=== PATIENT | female | born 1960 | race Asian ===

== ENCOUNTER 2018-06-30 10:57 | Outpatient (CLI) | payer OTHER ==
[~2018-06-30] VITALS: Ht 167.6 cm; Wt 51.7 kg
[2018-06-30] MEDS ORDERED: ACYCLOVIR200 MG ORAL (15:45)
[2018-06-30 15:47] VITALS: BP 102/60
--- NOTE | 2018-07-03 00:07 | GI Initial Consult Note ---
History of Present Illness General Date patient seen: Jun 30, 2018 Time patient seen: 00:00 Referring physician: HMO Reason for Consultation: ABDOMINAL PAIN Present Illness HPI 58 year old female patient presents today with evaluation of abdominal pain. The patient has c/o of generalized abdominal pain, indigestion and abdominal bloating. She states she occasionally gets constipated and has noted rectal bleeding as well. Patient states she has had a weight loss of 16 lbs in the past 5 months. No signs of abuse or neglect. Patient is not fall risk. Home Meds Reported Medications Acyclovir* (ACYCLOVIR*) 200 Mg Capsule, ORAL PRN, CAP 06/30/18 Med list reviewed/reconciled: Yes Allergies: Coded Allergies: ADHESIVE (Verified Allergy, Unknown, 06/30/18) PENICILLINS (Verified Allergy, Unknown, 06/30/18) Patient History PMH Narrative IBS Hemorrhoids Past Surgical History: NONE Family History Narrative Father >> colonic polyps Mother >> Breast CA, Gastric CA, Brain CA Social History: Reports: alcohol use - social; Denies: smoking, drug use, other Review of Systems All Other Systems: negative except mentioned in HPI Physical Exam Vital Signs Date Time Temp Pulse Resp B/P (MAP) Pulse Ox O2 Delivery O2 Flow Rate FiO2 06/30/18 15:47 98.3 53 102/60 96 Sp02 EP Interpretation: reviewed, normal General Appearance: well appearing, no apparent distress, alert Head: normocephalic EENT: PERRL/EOMI, normal ENT inspection Neck: supple Respiratory: normal breath sounds, no respiratory distress Cardiovascular: normal rate Gastrointestinal: normal inspection, non tender, soft, normal bowel sounds, non -distended Rectal: deferred Genitourinary: no CVA tenderness Musculoskeletal: normal inspection, back normal Neurologic: normal inspection, alert, oriented x3, responsive Psychiatric: normal inspection, judgement/insight normal, memory normal Skin: normal inspection, normal color, no rash, warm/dry, palpation normal, well hydrated Lymphatic: normal inspection, no adenopathy GI: Plan Problems: (1) Family history of gastric cancer (2) Colonoscopy planned (3) GERD (gastroesophageal reflux disease) (4) Constipation (5) Abdominal bloating (6) Rectal bleed Plan EGD/colonoscopy to be scheduled pending PA, will contact patient. - CLD & (Nulytely/Suprep/Movi-Prep) prep instructions given and acknowledged by patient. - NPO @ PA day prior procedure explained. Will follow with additional recs post procedure. Seen with Dr. Mahoney. Thank you for this patient referral. The patient was seen and examined at bedside and all new and available data was reviewed in the patients chart. I agree with the above findings, impression and plan. (Patient seen earlier today. Signature stamp does not reflect patient encounter time.). - MD Doug [facility]en[facility] [employer] Jul 03, 2018 00:07
== END 2018-06-30 11:27 | disposition home or self-care (01) ==
LOC: PAN 10:57
DX: R10.84 Generalized abdominal pain (principal); K21.9 Gastro-esophageal reflux disease without esophagitis; K59.00 Constipation, unspecified; R14.0 Abdominal distension (gaseous); K62.5 Hemorrhage of anus and rectum; R63.4 Abnormal weight loss
CPT/HCPCS: 99202

== ENCOUNTER 2018-12-23 13:42 | Outpatient (CLI) | payer OTHER ==
[2018-12-23 13:30] VITALS: BP 100/63
[~2018-12-23 13:42] MED LIST: ACYCLOVIR200 MG ORAL
--- NOTE | 2018-12-23 14:06 | General Progress Note ---
Assessment/Plan Problem List: (1) GERD (gastroesophageal reflux disease) ICD Codes: K21.9 - Gastro-esophageal reflux disease without esophagitis SNOMED: 235271389 (2) Colonoscopy planned SNOMED: 533379651 (3) Abdominal bloating ICD Codes: R14.0 - Abdominal distension (gaseous) SNOMED: 623698633 Assessment/Plan: plan colonoscopy when authorization is obtained recommend CT when abd pain is active Subjective ROS Limited/Unobtainable: Yes Allergies: Coded Allergies: ADHESIVE (Verified Allergy, Unknown, 06/30/18) PENICILLINS (Verified Allergy, Unknown, 06/30/18) Objective General Appearance: alert EENT: normal ENT inspection Neck: supple Cardiovascular: normal rate Respiratory/Chest: lungs clear Abdomen: normal bowel sounds, non tender, soft Extremities: non-tender Reji Mahoney MD December 23, 2018 14:06
== END 2018-12-23 15:42 | disposition home or self-care (01) ==
LOC: PAN 13:42
DX: K21.9 Gastro-esophageal reflux disease without esophagitis (principal); R14.0 Abdominal distension (gaseous); Z88.0 Allergy status to penicillin; Z91.040 Latex allergy status